=== PATIENT | female | born 1965 ===

== ENCOUNTER 2019-09-12 18:23 | Outpatient (CLI) | payer SELFPAY | END 2019-09-12 18:24 | disposition EMS.NT | LOC: EMS 18:23 | PROVIDERS: ATTEND Surgery | DX: R07.9 Chest pain, unspecified (principal); V43.52XA Car driver injured in collision with other type car in traffic accident, initial encounter; Y92.413 State road as the place of occurrence of the external cause ==

== ENCOUNTER 2019-09-13 10:40 | Emergency (ER) | payer OTHER ==
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
[2019-09-13 12:40] VITALS: BP 119/77
== END 2019-09-13 12:43 | disposition home or self-care (01) ==
LOC: ED 10:40
DX: S20.219A Contusion of unspecified front wall of thorax, initial encounter (principal); S70.01XA Contusion of right hip, initial encounter; T22.012A Burn of unspecified degree of left forearm, initial encounter; T22.011A Burn of unspecified degree of right forearm, initial encounter; M25.512 Pain in left shoulder; M54.9 Dorsalgia, unspecified; V43.52XA Car driver injured in collision with other type car in traffic accident, initial encounter; W22.11XA Striking against or struck by driver side automobile airbag, initial encounter; Y92.410 Unspecified street and highway as the place of occurrence of the external cause
CPT/HCPCS: 71046; 93005; 99283; 99284